=== PATIENT | male | born 1965 | race Caucasian/White ===

== ENCOUNTER → 2017-04-22 | Outpatient (CLI) | payer SELFPAY ==
--- NOTE | 2017-04-22 14:09 | CT ---
CORONARY CALCIUM SCORE CLINICAL INDICATION: Screening. COMPARISON: None PROCEDURE: Gated images of the coronary arteries. Coronary artery calcium scoring was performed. FINDINGS: Coronary calcium scoring - 3 LM: 0 LAD: 0 LCX: 3 RCA: 0 IMPRESSION: 1. Calcium score of 3. This places the patient at approximately the 25th-50th percentile for males of equivalent age. Minimal identifiable plaque. Less than 10% risk of coronary artery disease. Reported By:
== END ==
LOC: RAD 08:45
PROVIDERS: ATTEND Nurse Practitioner
DX: Z13.6 Encounter for screening for cardiovascular disorders (principal)